=== PATIENT | female | born 1965 | race Caucasian/White ===

== ENCOUNTER → 2023-02-08 | Outpatient (REF) | payer OTHER, SELFPAY | LOC: DHSLP | PROVIDERS: ATTENDING PHYSICIAN Physician Assistant Medical | DX: G47.33 Obstructive sleep apnea (adult) (pediatric) (principal) | CPT/HCPCS: 95800 ==

== ENCOUNTER → 2023-12-07 12:54 | Outpatient (REF) | payer OTHER, SELFPAY | LOC: RCS 12:54 | PROVIDERS: ATTENDING PHYSICIAN Nurse Practitioner; FAMILY PHYSICIAN Physician Assistant Medical | DX: R07.9 Chest pain, unspecified (principal); R06.09 Other forms of dyspnea; E78.00 Pure hypercholesterolemia, unspecified | CPT/HCPCS: 93017; 93350 ==

== ENCOUNTER → 2023-12-13 12:59 | Outpatient (REF) | payer OTHER, SELFPAY | LOC: RCS 12:59 | PROVIDERS: ATTENDING PHYSICIAN Nurse Practitioner; FAMILY PHYSICIAN Physician Assistant Medical | DX: R07.9 Chest pain, unspecified (principal); R06.09 Other forms of dyspnea; E78.00 Pure hypercholesterolemia, unspecified | CPT/HCPCS: 93306 ==

== ENCOUNTER → 2023-12-14 13:30 | Outpatient (REF) | payer OTHER, SELFPAY | LOC: HWRAD 13:30 | PROVIDERS: ATTENDING PHYSICIAN Nurse Practitioner Adult Health; FAMILY PHYSICIAN Physician Assistant Medical | DX: N95.0 Postmenopausal bleeding (principal) | CPT/HCPCS: 76830; 76856 ==

== ENCOUNTER 2024-04-18 17:47 | Emergency (ER) | payer OTHER, SELFPAY ==
[2024-04-18 17:54] VITALS: BP 169/80
--- NOTE | 2024-04-18 17:58 | ED.GENMED ---
ED Provider Triage
<Rupert Espinoza Jr., PA-C - Last Filed: 04/18/24 17:59>
-
Patient seen by provider in Triage?: Seen in Triage
Attestation: A medical screening examination has been initiated by a qualified medical provider. Based on the assessment performed at this time, it has been determined that an emergent medical condition may exist and the patient has been informed
that further medical evaluation and possible additional diagnostic testing may be needed.
HPI: 58-year-old female presenting to the emergency department with concerns of chest discomfort rating to her left arm over the past 45 minutes or so. Initial EKG without ischemic findings plan for additional testing with troponin labs and chest
x-ray. Given initial aspirin here.
GENERAL: Alert , in no apparent distress
EYE: No visual abnormalities.
NECK: Trachea midline
ENT: No visible abnormalities.
LUNGS: No acute respiratory distress
NEUROLOGICAL: Alert and oriented
SKIN: Skin intact. No visible changes.
MUSCULOSKELETAL: Moving extremities normally
PSYCH: Normal and appropriate interaction.
This is a medical evaluation conducted in person to initiate diagnostic evaluation and provide initial therapeutics. Please see further documentation by the treating clinician. Y\\
History of Present Illness
<Rupert Espinoza Jr., PA-C - Last Filed: 04/18/24 17:59>
General
Chief Complaint: Chest Pain
Time Seen by Provider: 04/18/24 21:14
<Yolis Alexander [employer] DEVELOPER - Last Filed: 04/20/24 01:06>
General
Source: patient
Exam Limitations: none
Nursing documentation reviewed up to this point in time: agreed with
History of Present Illness
History of Present Illness:
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
During this initial exam she has no symptoms other than mild lightheadedness but she states she has not eaten all day..
Past History
<Rupert Espinoza Jr., PA-C - Last Filed: 04/18/24 17:59>
Past History
ED Past Medical History: Negative Arrthythmia, Asthma, CAD or HTN
Social History
Tobacco: Former smoker
Alcohol: None
Drug: None
Personal:
Living: with family
Employment: Employed
Family History
Family History: CAD
Review of Systems
<Yolis Alexander, [employer] DEVELOPER - Last Filed: 04/20/24 01:06>
Review of Systems
Allergies reviewed?: Yes
All Other Systems: ROS reviewed and negative except as documented in HPI and ROS
Constitutional: Denies fever or fatigue
Respiratory: Denies trouble breathing
Cardiac: Reports chest pain; Denies diaphoresis or palpitations
ABD/GI: Reports nausea; Denies abdominal pain, vomiting or diarrhea
Musculoskeletal: Reports no symptoms
Skin: Reports no symptoms
Neurological: Reports no symptoms
Phy Exam
<Yolis Alexander [employer] DEVELOPER - Last Filed: 04/20/24 01:06>
Physical Exam
Physical Exam:
GENERAL: No acute distress. A&Ox3.
CONSTITUTIONAL: Afebrile.
EYES: Clear, conjunctivae normal
ENMT: moist mucus membranes, Pharynx nl
RESPIRATORY: Regular respirations, nonlabored, lungs clear.
CARDIOVASCULAR: Regular rate and rhythm, no murmurs, no rubs.
GI: Soft, nontender, normal BS
MUSCULOSKELETAL: Moves with ease. Well perfused.
SKIN: Warm, dry, pink
PSYCH: Normal mood and affect. Well kept, interactive and appropriate
NEUROLOGIC: Awake, alert and oriented. No focal neurological deficits
Scores
<Yolis Alexander [employer] DEVELOPER - Last Filed: 04/20/24 01:06>
Heart Score for Chest Pain Patients
STEMI patient?: Not applicable
Course
<Rupert Espinoza Jr., PA-C - Last Filed: 04/18/24 17:59>
Orders/Labs/Results
Orders:
Orders
04/18/24 17:49
EKG [Electrocardiogram (*1)] Urgent
Reason for Study: Chest Pain
EKG- Treatment ONCE
04/18/24 17:57
Aspirin Chewable [Low Strength Aspirin] 324 mg PO NOW STA
04/18/24 17:58
CR Chest - 2 Views Urgent
Comment:
Reason For Exam: cp
04/18/24 18:06
Complete Blood Count/With Diff Urgent
Comprehensive Metabolic Panel Urgent
Magnesium Urgent
Troponin I Urgent
04/18/24 21:14
Piperacillin/Tazo 3.375 Gram [Zosyn] 3.375 gram in 50 ml IV NOW
04/18/24 21:15
Vancomycin 1 Gram/200 ml [Vancocin] 1 gram in 200 ml IV NOW
04/18/24 21:20
Electrocardiogram (*1) Urgent
Reason for Study: Chest Pain
EKG- Treatment ONCE
04/18/24 21:44
Troponin I Urgent
Abnormal Lab Results
04/18/24
18:06
RBC 3.96 L 10^6/uL
(4.20-5.40)
Hct 35.9 L %
(37.0-47.0)
BUN 19 H mg/dl
(7-17)
Glucose 105 H mg/dl
(70-99)
04/18/24 18:06
04/18/24 18:06
Vital Signs
Initial and Last Documented VS:
Initial Vital Signs
Temp Pulse Resp BP Pulse Ox
98.3 F 87 18 169/80 100
04/18/24 17:54 04/18/24 17:54 04/18/24 17:54 04/18/24 17:54 04/18/24 17:54
Last Documented Vital Signs
Temp Pulse Resp BP Pulse Ox
98.3 F 80 13 129/66 98
04/18/24 17:54 04/18/24 21:45 04/18/24 21:45 04/18/24 21:00 04/18/24 21:15
<Yolis Alexander NP - Last Filed: 04/20/24 01:06>
Orders/Labs/Results
Orders:
Orders
04/18/24 17:49
EKG [Electrocardiogram (*1)] Urgent
Reason for Study: Chest Pain
EKG- Treatment ONCE
04/18/24 17:57
Aspirin Chewable [Low Strength Aspirin] 324 mg PO NOW STA
04/18/24 17:58
CR Chest - 2 Views Urgent
Comment:
Reason For Exam: cp
04/18/24 18:06
Complete Blood Count/With Diff Urgent
Comprehensive Metabolic Panel Urgent
Magnesium Urgent
Troponin I Urgent
04/18/24 21:14
Piperacillin/Tazo 3.375 Gram [Zosyn] 3.375 gram in 50 ml IV NOW
04/18/24 21:15
Vancomycin 1 Gram/200 ml [Vancocin] 1 gram in 200 ml IV NOW
04/18/24 21:20
Electrocardiogram (*1) Urgent
Reason for Study: Chest Pain
EKG- Treatment ONCE
04/18/24 21:44
Troponin I Urgent
Abnormal Lab Results
04/18/24
18:06
RBC 3.96 L 10^6/uL
(4.20-5.40)
Hct 35.9 L %
(37.0-47.0)
BUN 19 H mg/dl
(7-17)
Glucose 105 H mg/dl
(70-99)
04/18/24 18:06
04/18/24 18:06
Vital Signs
Initial and Last Documented VS:
Initial Vital Signs
Temp Pulse Resp BP Pulse Ox
98.3 F 87 18 169/80 100
04/18/24 17:54 04/18/24 17:54 04/18/24 17:54 04/18/24 17:54 04/18/24 17:54
Last Documented Vital Signs
Temp Pulse Resp BP Pulse Ox
98.3 F 80 13 129/66 98
04/18/24 17:54 04/18/24 21:45 04/18/24 21:45 04/18/24 21:00 04/18/24 21:15
<Yolis Alexander [employer] DEVELOPER - Last Filed: 04/20/24 01:06>
MDM/Problems Addressed
Differential Diagnosis Includes:
ACS, GERD
MDM/Problems Addressed:
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
During this initial exam she has no symptoms other than mild lightheadedness but she states she has not eaten all day..
CBC, CMP unremarkable
Troponin #1 normal. EKG #1 NSR
Chest x-ray NAD
10:30 PM:
Troponin #2 normal
EKG #2 unchanged
Patient remains asymptomatic, stable for discharge
Referred to Cardiology
Chronic conditions affecting care: HTN
<Yolis Alexander [employer] DEVELOPER - Last Filed: 04/20/24 01:06>
*Critical Care Note
Total Time (30-74mins, 75-104mins- exclusive of procedures): Not Applicable
ED Attending Note
<Rupert Espinoza Jr., PA-C - Last Filed: 04/18/24 17:59>
-
Portions of this chart may have been created with voice recognition software.� Occasional wrong word or��sound alike� substitutions may have occurred due to the inherent limitations of voice recognition software.
Discharge Plan
Departure
Patient Disposition: Home (Routine Discharge)
Date of Disposition: 04/18/24
Time of Disposition: 22:29
Patient with high blood pressure during this ER visit?: No
Condition: Good
Discharge Problem:
Atypical chest pain
Instructions: Acid Reflux and GERD in Adults (DC), Chest pain - Discharge instructions
Prescriptions:
No Action
atorvastatin 20 mg Tablet
20 mg PO HS
cetirizine [Zyrtec] 10 mg Tablet
10 mg PO DAILY
levothyroxine 25 mcg Tablet
25 mcg PO DAILY
citalopram 20 mg Tablet
20 mg PO DAILY
pantoprazole 40 mg Tablet,Delayed Release (Dr/Ec)
40 mg PO DAILY
zolpidem 10 mg Tablet
10 mg PO HS
clobetasol 0.05 % Cream
1 applic TOPICAL DAILYPRN PRN (Reason: psoriasis)
aspirin 81 mg Tablet,Delayed Release (Dr/Ec)
81 mg PO HS
magnesium oxide 250 mg magnesium Tablet
250 mg PO HS
Referrals:
Corey Garcia DO [Active] - Next open appointment
Christin Ravi PA-C [Family Provider] -
Activity Restrictions/Additional Instructions:
As we discussed, nothing worrisome in your workup here today. Call the [facility] vessel operator and make next available appointment for a more thorough cardiac evaluation
Interventions
Interventions:
*Risk Screen - Suicide Last Done: 04/18/24 17:54
*General Assessment Last Done: 04/18/24 17:54
*Neglect/Abuse Screening Last Done: 04/18/24 17:54
ED- Fall Risk Assessment Last Done: 04/18/24 20:30
*ED COVID-19 Vaccine History Last Done: 04/18/24 17:54
*Nursing Disposition Last Done: 04/18/24 22:45
ED- Cardiac Assessment Last Done: 04/18/24 20:30
Discharge Date and Time
Discharge Date/Time: 04/18/24 22:46
Print Language: CZECH
[2024-04-18] MEDS: LOW STRENGTH ASPIRIN 324 MG PO (18:00)
[2024-04-18 18:19] LABS: % Basophils 0.1 % (0-2); % Eosinophils 2.4 % (0-6); % Immature Granulocytes 0.2 % (0-0.5); % Lymphocytes 29.6 % (20.5-51.1); % Monocytes 7.1 % (1.7-9.3); % Neutrophils 60.6 % (42.2-75.2); Absolute Eosinophils 0.2 10^3/uL (0-0.7); Absolute Lymphocytes 2.5 10^3/uL (1.2-3.4); Absolute Monocytes 0.6 10^3/uL (0.1-0.6); Hematocrit 35.9 % (37.0-47.0); Hemoglobin 12.2 g/dL (12.0-16.0); Mean Corpuscular Hgb 30.8 pg (27.0-31.0); Mean Corpuscular Volume 90.7 fL (81.0-99.0); Mean Platelet Volume 9.4 fL (7.4-10.4); Nucleated Red Blood Cells % 0 %; Platelet Count 281 10^3/uL (130-400); Red Blood Cell Count 3.96 10^6/uL (4.20-5.40); Red Cell Dist. Width 12.2 % (11.5-14.5); White Blood Cell Count 8.3 10^3/uL (4.8-10.8)
[2024-04-18 18:42] LABS: Troponin I 0.015 ng/ml
[2024-04-18 18:47] LABS: ALT (SGPT) 29 U/L (0-35); AST (SGOT) 28 U/L (14-36); Albumin 4.7 g/dl (3.5-5.0); Alkaline Phosphatase 90 U/L (38-126); Blood Urea Nitrogen 19 mg/dl (7-17); Calcium 9.2 mg/dl (8.4-10.2); Carbon Dioxide 27 mmol/L (22-30); Chloride 98 mmol/L (98-107); Glucose 105 mg/dl (70-99); Potassium 3.8 mmol/L (3.5-5.1); Sodium 137 mmol/L (135-145); Total Bilirubin 0.6 mg/dl (0.2-1.3); Total Protein 7.6 g/dl (6.3-8.2); eGFR > 60.00
[2024-04-18 19:45] VITALS: BMI 33.7
[2024-04-18 20:09] VITALS: BP 98/70
[2024-04-18 21:00] VITALS: BP 129/66
[2024-04-18 22:20] LABS: Troponin I 0.015 ng/ml
== END 2024-04-18 22:46 | disposition home or self-care (01) ==
LOC: EMR 17:47
PROVIDERS: Physician Assistant; Registered Nurse; EMERGENCY PHYSICIAN Emergency Medicine; FAMILY PHYSICIAN Physician Assistant Medical
DX: R07.89 Other chest pain (principal); M79.622 Pain in left upper arm; R42 Dizziness and giddiness; R11.0 Nausea; M25.512 Pain in left shoulder; I10 Essential (primary) hypertension; E03.9 Hypothyroidism, unspecified; E78.5 Hyperlipidemia, unspecified; Z79.82 Long term (current) use of aspirin; Z87.891 Personal history of nicotine dependence; Z91.040 Latex allergy status
CPT/HCPCS: 99284; 71046; 80053; 83735; 84484; 85025; 93005

== ENCOUNTER → 2024-06-06 10:26 | Outpatient (REF) | payer OTHER, SELFPAY | LOC: RAD 10:26 | PROVIDERS: ATTENDING PHYSICIAN Physician Assistant; FAMILY PHYSICIAN Physician Assistant Medical | DX: R13.10 Dysphagia, unspecified (principal) | CPT/HCPCS: 74246 ==

== ENCOUNTER → 2024-06-19 15:29 | Outpatient (REF) | payer OTHER, SELFPAY | LOC: WDC 15:29 | PROVIDERS: ATTENDING PHYSICIAN Nurse Practitioner Adult Health; FAMILY PHYSICIAN Physician Assistant Medical | DX: Z12.31 Encounter for screening mammogram for malignant neoplasm of breast (principal) | CPT/HCPCS: 77063; 77067 ==

== ENCOUNTER 2024-07-14 06:24 | Day surgery (SDC) | payer OTHER, SELFPAY ==
[2024-07-14 11:42] VITALS: BMI 32.8
[2024-07-14 11:43] VITALS: BMI 32.8
[2024-07-14 11:44] VITALS: BP 140/73
[2024-07-14 13:08] VITALS: BP 93/53
[2024-07-14 13:15] VITALS: BP 92/49
[2024-07-14 13:30] VITALS: BP 111/71
[2024-07-14 13:46] VITALS: BP 102/74
== END 2024-07-14 14:22 | disposition home or self-care (01) ==
LOC: SDS 06:24
PROVIDERS: ATTENDING PHYSICIAN Internal Medicine Gastroenterology
DX: K64.8 Other hemorrhoids (principal); K29.50 Unspecified chronic gastritis without bleeding; K20.90 Esophagitis, unspecified without bleeding; K22.89 Other specified disease of esophagus; K44.9 Diaphragmatic hernia without obstruction or gangrene; K31.89 Other diseases of stomach and duodenum; K21.9 Gastro-esophageal reflux disease without esophagitis; R13.10 Dysphagia, unspecified; Z86.0101 Personal history of adenomatous and serrated colon polyps; Z83.719 Family history of colon polyps, unspecified
CPT/HCPCS: 45380; 43239; 88305; 88342

== ENCOUNTER → 2024-08-03 11:07 | Outpatient (REF) | payer OTHER, SELFPAY | LOC: WDC 11:07 | PROVIDERS: ATTENDING PHYSICIAN Nurse Practitioner Adult Health; FAMILY PHYSICIAN Physician Assistant Medical | DX: R92.2 Inconclusive mammogram (principal) | CPT/HCPCS: 76641 ==

== ENCOUNTER → 2025-02-02 14:57 | Outpatient (REF) | payer OTHER, SELFPAY | LOC: WDC 14:57 | PROVIDERS: ATTENDING PHYSICIAN Surgery; FAMILY PHYSICIAN Physician Assistant Medical | DX: R92.8 Other abnormal and inconclusive findings on diagnostic imaging of breast (principal) | CPT/HCPCS: 76642 ==